=== PATIENT | male | born 1965 | race Caucasian/White ===

== ENCOUNTER 2022-04-19 08:55 | Day surgery (SDC) | payer BC, OTHER ==
[2022-04-15 13:29] LABS: Potassium 4.7 mmol/L (3.5-5.1)
--- NOTE | 2022-04-16 08:23 | EKG ---
Test Date: 2022-04-15 Test Time: 12:56:22 Lmsw: LEXY MEASUREMENT RESULTS: Intervals: Rate: 70 [place]: 144 QRSD: 86 QT: 362 QTc: 390 [place]: P: 54 [place]: 144 QRS: -26 T: 15 INTERPRETIVE STATEMENTS: Normal sinus rhythm Possible Left atrial enlargement Left ventricular hypertrophy Abnormal ECG No previous ECG available for comparison Electronically Signed On 04-16-22 08:20:01 THUMB SEWER by Tin Hanson
[2022-04-19] MEDS ORDERED: Ringers Lactate 1,000 ML IV ONE (09:02)
[2022-04-19] MEDS ORDERED: CEFAZOLIN SODIUM 1 GM/VIAL ONE (09:02)
[2022-04-19] MEDS ORDERED: BUPIVACAINE 0.25% PF 30 ML VIAL ONE (10:04)
[2022-04-19] MEDS ORDERED: propofoL 200 MG/20 ML VIAL IV ONE (10:17)
[2022-04-19] MEDS ORDERED: ROCURONIUM 50 MG/5 ML VIAL IV ONE (10:17)
[2022-04-19] MEDS ORDERED: FENTANYL CITR 100 MCG/2 ML ONE ×2 (10:17→11:23)
[2022-04-19] MEDS ORDERED: ONDANSETRON 4 MG/2 ML VIAL ONE (10:17)
[2022-04-19] MEDS ORDERED: MIDAZOLAM HCL 2 MG/2 ML INJ ONE (10:17)
[2022-04-19] MEDS ORDERED: LIDOCAINE 2% MPF 5 ML VIAL ONE (10:19)
[2022-04-19] MEDS ORDERED: EPHEDRINE SULF 50 MG/ML VIAL ONE (10:47)
[2022-04-19] MEDS ORDERED: KETOROLAC 30 MG/ML INJ ONE (11:36)
--- NOTE | 2022-04-19 11:40 | P.OP ---
Preoperative diagnosis: Recurrent Umbilical Incisional Hernia Postoperative diagnosis: Recurrent Umbilical Incisional Hernia Primary procedure: Laparoscopic Removal of Prior Migrated Mesh Secondary procedure: Laparoscopic repair of Recurrent Umbilical Incisional Hernia with Mesh Anesthesia: GETA + Local Estimated blood loss: <5cc Specimen: Foreign Body - Mesh Findings: Migrated prior mesh with recurrent hernia Complications: None Implants: Ventralite ST mesh - 11.4cm Round, Sorbafix Absorble Tacks Transferred to: Recovery Room Condition: Good
[2022-04-19] MEDS: HYDROMORPHONE HCL 1 MG/ML INJ ONE ×4 (12:04→12:41)
[2022-04-19] MEDS ORDERED: HYDROCODONE/APAP 7.5/325 MG TAB ONE (13:23)
[2022-04-19 14:45] VITALS: BP 129/81; TEMP 96.4; O2SAT 94
--- NOTE | 2022-04-19 23:24 | OP ---
Date of Procedure: 04/19/2022 Surgeon: Jewel Simmons MD, Preoperative Diagnosis: Recurrent umbilical incisional hernia. Postoperative Diagnosis: Recurrent umbilical incisional hernia. Procedures Performed: 1.Laparoscopic removal of prior migrated periumbilical mesh. 2.Laparoscopic repair of recurrent incisional umbilical hernia with mesh. Anesthesia: General endotracheal plus local with 0.25% Marcaine. Estimated Blood Loss: Less than 5 cc. Specimen: Foreign body/mesh. Findings: Migrated prior mesh with recurrent hernia at the superior aspect. Complications: None. Implants: Bard Ventralight ST mesh with Echo Positioning System, 11.4 cm round mesh utilized. SorbaF ix absorbable fixation tacks, 45 utilized. Disposition: Patient was transferred to recovery room in good condition. Procedure In Detail: After informed consent was obtained, patient was brought to the operating room and prepped in the usual sterile fashion. After adequate anesthesia was achieved, an area in the lef t upper quadrant was anesthetized with 0.25% Marcaine, sharply incised. A 5 mm trocar was placed und er direct visualization without evidence of any complication. Insufflation was obtained to 15 mmHg a t this time. There was no injury to vital structures upon entry into the abdomen. Additional trocar was placed in the left mid abdomen, which was similarly anesthetized and sharply incised and 12 mm t rocar was placed under direct visualization without evidence of any complication. At this point, I p roceeded to inspect the abdomen, which had significant omental attachments to the anterior abdominal wall as well as to the previously placed mesh in the periumbilical position. The mesh appeared to haro ve flipped down in the superior aspect and had an opening at this point where omentum had passed all the way through at the superior aspect underneath the superior aspect of the mesh. The mesh was othe rwise secured inferiorly and laterally. At this point, I reduced the hernia contents from the perium bilical recurrent incisional hernia and began to pull the mesh back as it was somewhat flapped away f rom the abdominal wall. At this point, I used a combination of sharp dissection with Endo Margo and the LigaSure device to sweep the omentum off the posterior surface of the mesh and then th e mesh following it's already avulsed course circumferentially around to remove it at this point. Th e mesh was then brought out through the lateral trocar and sent off for pathologic examination for ID only as mesh foreign body. At this point, I inspected the abdominal wall, which was found to be int act with only a small hernia defect of approximately a cm. At this point, the Bard Ventralight ST me sh with Echo Positioning System was brought into the field and centered in the central portion with a balloon deployment system activated. At this point, I then secured a single crown of SorbaFix absor bable fixation tacks as a single crown circumferentially securing the 11.4 cm Bard Ventralight mesh t o the anterior abdominal wall. I then removed the balloon deployment system and found it to be intac t on the back table. I then secured a second crown circumferentially around the hernia defect with g ood apposition to the anterior abdominal wall. At this point, I closed the 12 mm trocar site using a Benoit-Allan suture passer with 0 Vicryl in interrupted fashion with good approximation of tissue s. The abdomen was completely desufflated at this point under direct visualization. All skin incisi ons were then copiously irrigated and closed with a 4-0 Monocryl in a running fashion and Dermabond p laced over top. The patient tolerated procedure without evidence of any complication and transferred to PACU in good condition. All counts were correct at the end of the case. TANO/MARLYN Voice ID: [id number] Report ID: [id number]
== END 2022-04-19 13:40 | disposition home or self-care (01) ==
LOC: OR 08:55
PROVIDERS: ATTEND Surgery
PROC: 0WUF4JZ Supplement Abdominal Wall with Synthetic Substitute, Percutaneous Endoscopic Approach (ICD-10-PCS; principal; 2022-04-19 10:30)
DX: K43.2 Incisional hernia without obstruction or gangrene (principal)
CPT/HCPCS: 93005 ×2; 80048; 36415; 88300; 49652; J2704; J2001; J2250; J3010 ×2; J1170 ×2; J7120; J2405; J0690; C1781